=== PATIENT | female | born 1995 | race Caucasian/White ===

== ENCOUNTER 2016-07-02 07:54 | Emergency (ER) | payer BC ==
[2016-07-02 08:17] VITALS: BP 116/68
--- NOTE | 2016-07-02 08:39 | UC ---
Throat Pain/Nasal Khanh HPI - HPI Summary HPI Summary: compaint of sore throat that started yesterday this morning pain has worsened denies fever but had some chills thsi morning nasal congestion denies cough, ear pain and headache taking sudafed and alkaseltzer plus without relief - History of Current Complaint Chief Complaint: UCRespiratory Stated Complaint: SORE THROAT Time Seen by Provider: 07/02/16 08:30 Hx Obtained From: Patient Hx Last Menstrual Period: 05/29/16 - Allergies/Home Medications Allergies/Adverse Reactions: Allergies Allergy/AdvReac Type Severity Reaction Status Date / Time Penicillins Allergy Unknown pt does Verified 07/02/16 08:11 not know reaction Home Medications: Home Medications Ascorbic Acid TAB* [Vitamin C TAB*] 500 mg PO DAILY 07/02/16 [History Confirmed 07/02/16] Lactobacillus [Probiotic] 1 cap PO DAILY 07/02/16 [History Confirmed 07/02/16] Lysine [l-Lysine] 1,000 mg PO DAILY 07/02/16 [History Confirmed 07/02/16] Multiple Vitamins W/ Minerals [Multivitamin Women] 1 tab PO DAILY 07/02/16 [ History Confirmed 07/02/16] PMH/Surg Hx/FS Hx/Imm Hx Previously Healthy: Yes Cardiovascular History Of: Denies: Hypertension, Pacemaker/ICD, Congestive Heart Failure, Atrial Fibrillation Respiratory History Of: Reports: Asthma - WITH EXERTION, Bronchitis - ONCE EVERY YEAR, 2X LAST YEAR Denies: COPD GI/ History Of: Denies: Gastroesophageal Reflux - Surgical History Surgical History: Yes Surgery Procedure, Year, and Place: T&A KENDRA; larynx 11/2015 [facility] – [place] - Family History Known Family History: Positive: Hypertension Negative: Cardiac Disease, Diabetes - Social History Occupation: Student Alcohol Use: Occasionally Substance Use Type: None Smoking Status (MU): Never Smoked Tobacco Have You Smoked in the Last Year: No Review of Systems Constitutional: Chills Skin: Negative Eyes: Negative ENT: Sore Throat, Nasal Discharge Respiratory: Negative Cardiovascular: Negative Gastrointestinal: Negative Genitourinary: Negative Motor: Negative Neurovascular: Negative Musculoskeletal: Negative Neurological: Negative Psychological: Negative All Other Systems Reviewed And Are Negative: Yes Physical Exam Triage Information Reviewed: Yes Appearance: No Pain Distress, Well-Nourished Vital Signs: Initial Vital Signs Temp 98.1 F 07/02/16 08:13 Pulse 99 07/02/16 08:13 Resp 16 07/02/16 08:13 BP 116/68 07/02/16 08:13 Pulse Ox 100 07/02/16 08:13 Vital Signs Reviewed: Yes Eyes: Positive: Conjunctiva Clear ENT: Positive: Pharyngeal erythema, Nasal congestion, Nasal drainage, TMs normal , Tonsillar swelling, Tonsillar exudate Neck: Positive: No Lymphadenopathy Respiratory: Positive: Lungs clear, Normal breath sounds, No respiratory distress Cardiovascular: Positive: RRR, No Murmur, Pulses Normal Abdomen Description: Positive: Nontender, Soft Bowel Sounds: Positive: Present Musculoskeletal Exam: Normal Neurological: Positive: Alert Psychological Exam: Normal Skin Exam: Normal Throat Pain/Nasal Course/Dx - Course Course Of Treatment: exam completed. treating for positive strep infection - Differential Dx/Diagnosis Differential Diagnosis/HQI/PQRI: Pharyngitis, Tonsillitis Provider Diagnoses: strep pharyngitis Discharge - Discharge Plan Condition: Stable Disposition: HOME Prescriptions: Clarithromycin TAB* [Biaxin 250 MG TAB*] 250 mg PO BID #20 tab Patient Education Materials: Strep Throat (ED) Referrals: Brynn Webber [Primary Care Provider] - Additional Instructions: Please take antibiotic as directed Increase fluids and rest Take acetaminophen or ibuprofen for fever or pain Please review your discharge instructions. If your symptoms do not improve please call your primary care provider or return to urgent care.
== END 2016-07-02 09:00 | disposition home or self-care (01) ==
LOC: UCCORT 07:54
DX: J02.0 Streptococcal pharyngitis (principal); Z88.0 Allergy status to penicillin
CPT/HCPCS: 87651; 99212; G0463

== ENCOUNTER 2016-07-05 15:12 | Emergency (ER) | payer BC ==
[2016-07-05 15:44] VITALS: BP 124/71
--- NOTE | 2016-07-05 15:53 | UC ---
Throat Pain/Nasal Khanh HPI - HPI Summary HPI Summary: The patient comes in today for: 1. Sore throat: Onset: 4 days ago. Palliative/provocative: Swallowing, also tomato soup makes it worse. Eating a clematine made it worse. Quality: Acheing, with no eating. There is a burning with eating. Region: Throat. Severity: 7/10 Time: Constant. Associated symptoms: Previous treatment: She was seen 4 days ago (the day that her sore throat started) and she had a test positive for strep throat. She was put on Clarithromycin which did not help at all. Fevers: None recently. Rhinitis: Present--green. Cough: "a little bit." Productive of green yellow * - History of Current Complaint Chief Complaint: UCRespiratory Stated Complaint: SORE THROAT,COUGH Time Seen by Provider: 07/05/16 15:47 Hx Obtained From: Patient Hx Last Menstrual Period: 06/08/16 ?: No - Allergies/Home Medications Allergies/Adverse Reactions: Allergies Allergy/AdvReac Type Severity Reaction Status Date / Time Penicillins Allergy Unknown pt does Verified 07/05/16 15:44 not know reaction PMH/Surg Hx/FS Hx/Imm Hx Previously Healthy: Yes Endocrine History Of: Denies: Diabetes, Thyroid Disease, Hyperthyroidism, Hypothyroidism, Dyslipidemia Cardiovascular History Of: Denies: Cardiac Disorders, Hypertension, Pacemaker/ICD, Myocardial Infarction , Congestive Heart Failure, Atrial Fibrillation, Deep Vein Thrombosis, Bleeding Disorders Respiratory History Of: Denies: COPD, Asthma, Bronchitis - ONCE EVERY YEAR, 2X LAST YEAR GI/ History Of: Denies: Gastroesophageal Reflux, Ulcer, Gastrointestinal Bleed, Gall Bladder Disease, Kidney Stones, Diverticulitis, Renal Disease, Urosepsis Neurological History Of: Denies: TIA, CVA, Dementia, Seizures, Migraine Psychological History Of: Denies: Anxiety, Depression, Bipolar Disorder, Schizophrenia, Post Traumatic Stress Disorder Cancer History Of: Denies: Lung Cancer, Colorectal Cancer, Breast Cancer, Prostate Cancer, Cervical Cancer Other History Of: Negative For: HIV, Hepatitis B, Hepatitis C, Anticoagulant Therapy - Surgical History Surgical History: Yes Surgery Procedure, Year, and Place: T&A KENDRA; [place] [facility] [place] - Family History Known Family History: Positive: Hypertension Negative: Cardiac Disease, Diabetes - Social History Occupation: Student Alcohol Use: Occasionally Substance Use Type: None Smoking Status (MU): Never Smoked Tobacco Have You Smoked in the Last Year: No Review of Systems Constitutional: Negative Skin: Negative Eyes: Negative ENT: Sore Throat, Nasal Discharge Respiratory: Cough Cardiovascular: Negative Gastrointestinal: Negative Genitourinary: Negative All Other Systems Reviewed And Are Negative: Yes Physical Exam Triage Information Reviewed: Yes Appearance: Well-Appearing, No Pain Distress, Well-Nourished Vital Signs: Initial Vital Signs Temp 97.3 F 07/05/16 15:33 Pulse 66 07/05/16 15:33 Resp 16 07/05/16 15:33 BP 124/71 07/05/16 15:33 Pulse Ox 100 07/05/16 15:33 Vital Signs Reviewed: Yes Eyes: Positive: Conjunctiva Clear. Negative: Discharge ENT: Positive: Hearing grossly normal, Other: - The patient has a 4-5 mm aphthous ulcer on the left peritonsilar pillar.. Negative: Pharyngeal erythema , Nasal congestion, Nasal drainage, TM bulging, TM dull, TM red, Tonsillar swelling, Tonsillar exudate Dental: Negative: Gross Decay/Caries @, Dental Fracture @ Neck: Positive: Supple, Nontender, No Lymphadenopathy - She has no enlarged nodes, the the left tonsilar nodes were tender.. Negative: Nuchal Rigidity Respiratory: Positive: Chest non-tender, Lungs clear, No respiratory distress, No accessory muscle use. Negative: Rhonchi, Wheezing Cardiovascular: Positive: RRR, No Murmur Abdomen Description: Positive: Nontender, No Organomegaly, Soft. Negative: Distended, Guarding Musculoskeletal: Positive: Strength Intact, ROM Intact, No Edema, Strength Limited @ Neurological: Positive: Alert, Muscle Tone Normal Psychological: Positive: Age Appropriate Behavior, Consolable Skin: Negative: rashes, breakdown Throat Pain/Nasal Course/Dx - Differential Dx/Diagnosis Differential Diagnosis/HQI/PQRI: Laryngitis, Pharyngitis, Tonsillitis Provider Diagnoses: Left peritonsillar pillar aphthous ulcer. Sinusitis. Bronchitis (on treatment). Strep throat (on treatment) Discharge - Discharge Plan Condition: Stable Disposition: HOME Patient Education Materials: Canker Sores (ED) Referrals: Brynn Webber [Primary Care Provider] - 1 Week (Please see your primary care provider or [facility] in about a week to see how well you are donig. If you get worse, please be seen sooner.)
== END 2016-07-05 16:20 | disposition home or self-care (01) ==
LOC: UCCORT 15:12
DX: J35.8 Other chronic diseases of tonsils and adenoids (principal); J32.9 Chronic sinusitis, unspecified; J40 Bronchitis, not specified as acute or chronic; J02.0 Streptococcal pharyngitis; Z88.0 Allergy status to penicillin
CPT/HCPCS: 99212; G0463

== ENCOUNTER 2017-11-29 10:55 | Emergency (ER) | payer BC | END 2017-11-29 13:45 | disposition home or self-care (01) | LOC: UCCORT 13:10 | DX: J01.10 Acute frontal sinusitis, unspecified (principal) | CPT/HCPCS: 99212; G0463 ==

== ENCOUNTER 2018-08-10 08:50 | Emergency (ER) | payer BC ==
[2018-08-10 09:16] VITALS: BP 117/73
[2018-08-10] MEDS ORDERED: Albuterol 2.5 MG/3 ML NEB.SOL* (0.083%) INH ONE (09:42)
[2018-08-10] MEDS ORDERED: predniSONE TAB* 20 MG PO ONE (09:42)
--- NOTE | 2018-08-10 09:42 | UC ---
General HPI - HPI Summary HPI Summary: day 5 of sinus congestion, sore throat and cough with chest congestion. notes white spots in throat. subjective fever and chills. green post nasal drip. no asthma. tx with otc socorro seltzer cold. - History of Current Complaint Chief Complaint: UCRespiratory Stated Complaint: SINUSES, SORE THROAT Time Seen by Provider: 08/10/18 09:34 Hx Obtained From: Patient Hx Last Menstrual Period: 07/26/18 Onset/Duration: Gradual Onset Timing: Constant Pain Intensity: 7 Associated Signs & Symptoms: Negative: Chest Pain - Allergy/Home Medications Allergies/Adverse Reactions: Allergies Allergy/AdvReac Type Severity Reaction Status Date / Time Penicillins Allergy Unknown Unknown Verified 08/10/18 09:04 Reaction Details Home Medications: Home Medications Dm/PE/Acetaminophen/Chlorphenr [[place] Plus Cold &] 1 cap PO PRN 08/10/18 [History] Ibuprofen TAB* [Advil TAB*] 400 mg PO Q6H PRN 08/10/18 [History Confirmed ] Oral Contraceptive 1 tab PO DAILY 08/10/18 [History] PMH/Surg Hx/FS Hx/Imm Hx Previously Healthy: Yes Other History Of: Negative For: HIV, Hepatitis B, Hepatitis C, Anticoagulant Therapy - Surgical History Surgical History: Yes Surgery Procedure, Year, and Place: T&A KENDRA; [place] [facility] [place] - Family History Known Family History: Positive: Hypertension Negative: Cardiac Disease, Diabetes - Social History Occupation: Student Alcohol Use: Occasionally Substance Use Type: None Smoking Status (MU): Never Smoked Tobacco Have You Smoked in the Last Year: No - Immunization History Vaccination Up to Date: Yes Review of Systems All Other Systems Reviewed And Are Negative: Yes Constitutional: Positive: Fever, Chills ENT: Positive: Sore Throat, Nasal Discharge, Sinus Congestion, Sinus Pain/ Tenderness Respiratory: Positive: Shortness Of Breath - with exertion, Cough Physical Exam Triage Information Reviewed: Yes Appearance: Ill-Appearing - but non toxic. Vital Signs: Initial Vital Signs Temp 99.8 F 08/10/18 09:08 Pulse 110 08/10/18 09:08 Resp 16 08/10/18 09:08 BP 117/73 08/10/18 09:08 Pulse Ox 100 08/10/18 09:08 Vital Signs Reviewed: Yes Eyes: Positive: Conjunctiva Clear ENT: Positive: Pharyngeal erythema - with mild swelling R > L. white spots on R. , Nasal congestion, TMs normal, Sinus tenderness - maxillary, Uvula midline. Negative: Nasal drainage, Trismus, Muffled voice, Hoarse voice Neck: Positive: Supple, Nontender, Enlarged Nodes @ - peritonsilar Respiratory: Positive: No respiratory distress, Decreased breath sounds, Other: - Bronchospastic deep congested cough. Cardiovascular: Positive: RRR, No Murmur Abdomen Description: Positive: Nontender Bowel Sounds: Positive: Present Musculoskeletal: Positive: ROM Intact Neurological: Positive: Alert Psychological: Positive: Age Appropriate Behavior Skin Exam: Normal Diagnostics - Laboratory Lab Results: rapid strep=neg Re-Evaluation - Re-Evaluation First Eval Re-Evaluation Time: 10:21 Change: Improved - aeration has improved Course/Dx - Course Course Of Treatment: PT CALL MOM. THE PCN ALLERGY WAS RASH BABY. PT HAS TAKEN PCN SINCE THEN AND HAS NO ISSUES. - Diagnoses Provider Diagnosis: Sinusitis, Pharyngitis, Bronchitis Discharge - Sign-Out/Discharge Documenting (check all that apply): Patient Departure All imaging exams completed and their final reports reviewed: No Studies - Discharge Plan Condition: Stable Disposition: HOME Prescriptions: Albuterol HFA INHALER* [Ventolin HFA Inhaler*] 2 puff INH Q6H #1 mdi Amoxicillin/Clavulanate TAB* [Augmentin TAB 875*] 875 mg PO BID 10 Days #20 tab predniSONE [Prednisone 20 MG TAB] 40 mg PO DAILY 5 Days #10 tablet Patient Education Materials: Sinusitis (ED), Pharyngitis (ED), Acute Bronchitis (ED) Additional Instructions: FOLLOW UP WITH YOUR DOCTOR AT [facility] IN 5 DAYS OR SOONER IF WORSE. - Billing Disposition and Condition Condition: STABLE Disposition: Home
== END 2018-08-10 10:56 | disposition home or self-care (01) ==
LOC: UCCORT 08:50
DX: J32.9 Chronic sinusitis, unspecified (principal); J02.9 Acute pharyngitis, unspecified; J40 Bronchitis, not specified as acute or chronic; Z88.0 Allergy status to penicillin
CPT/HCPCS: 87651; 99212; G0463; J7512